=== PATIENT | female | born 1990 | race Caucasian/White ===

== ENCOUNTER 2017-12-12 10:38 | Outpatient (CLI) | payer MEDICAID ==
[2017-12-12] MEDS: ACETAMINOPHEN 325 MG TAB PO (12:22)
== END 2017-12-12 13:20 | disposition home or self-care (01) ==
LOC: OBT 10:38 → L-D 10:38 → OBT 13:20
DX: O62.9 Abnormality of forces of labor, unspecified (principal); Z3A.36 36 weeks gestation of pregnancy
CPT/HCPCS: 76818

== ENCOUNTER 2018-01-03 12:41 | Inpatient (IN) | payer MEDICAID ==
[2018-01-03] MEDS: LACTATED RINGER'S 1,000 ML IV ×2 (13:31→21:30)
[2018-01-03] MEDS ORDERED: OXYTOCIN 30 UNITS/LR 500 ML IV (15:00)
[2018-01-03] MEDS ORDERED: BUTORPHANOL 1 MG INJ IV (15:00)
[2018-01-03] MEDS ORDERED: METHYLERGONOVINE 0.2 MG INJ IM (15:00)
[2018-01-03] MEDS ORDERED: CARBOPROST 250 MCG INJ IM (15:00)
[2018-01-03] MEDS ORDERED: MISOPROSTOL 200 MCG TAB PR (15:00)
[2018-01-03] MEDS ORDERED: LIDOCAINE 1% (MPF) 30 ML INJ INJ (15:00)
[2018-01-03 15:15] LABS: ADD MAN DIFF? NO
[2018-01-03 15:19] LABS: WHITE BLOOD COUNT 11.5 10^3/ul (4.8-10.8)
[2018-01-03 15:19] LABS: BASOPHILS % 0.3 % (0.0-2.0); EOSINOPHILS # 0.1 10^3/ul (0.0-0.5); HEMATOCRIT 37.6 % (37.0-47.0); HEMOGLOBIN 12.5 g/dl (12.0-16.0); LYMPHOCYTES # 1.2 10^3/ul (0.8-2.9); LYMPHOCYTES % 10.6 % (15.0-51.0); MEAN CORPUSCULAR HEMOGLOBIN 30.3 pg (29.0-33.0); MEAN CORPUSCULAR HGB CONC 33.2 g/dl (32.0-37.0); MEAN CORPUSCULAR VOLUME 91.3 fl (82.0-101.0); MEAN PLATELET VOLUME 12.1 fl (7.4-10.4); MONOCYTE # 0.7 10^3/ul (0.3-0.9); MONOCYTES % 6.2 % (0.0-11.0); NEUTROPHIL # 9.4 10^3/ul (1.6-7.5); NEUTROPHILS % 81.6 % (39.0-77.0); PLATELET COUNT 186 10^3/UL (140-415); RED BLOOD COUNT 4.12 10^6/ul (4.20-5.40); RED CELL DISTRIBUTION WIDTH 13.9 % (11.5-14.5)
[2018-01-03 15:39] LABS: INR 0.84; PROTIME 11.6 Sec (11.9-14.9); PT RATIO 0.9
[2018-01-03] MEDS: DINOPROSTONE 10 MG VAG SUPP VAG (16:16)
[2018-01-03] MEDS ORDERED: AMPICILLIN 1 GM/NS (PMX) 50 ML IVPB (17:00)
[2018-01-03] MEDS ORDERED: AMPICILLIN 2 GM/NS (PMX) 100 ML IVPB (17:00)
[2018-01-03] MEDS: AMPICILLIN 2 GM/NS (PMX) 100 ML IVPB (17:13)
[2018-01-03] MEDS: LACTATED RINGER'S 1,000 ML IV* (17:13)
[2018-01-03] MEDS: AMPICILLIN 1 GM/NS (PMX) 50 ML IVPB (21:10)
[2018-01-03] MEDS: BUTORPHANOL 2 MG INJ IV (22:55)
[2018-01-04] MEDS: AMPICILLIN 1 GM/NS (PMX) 50 ML IVPB ×5 (01:01→16:38)
[2018-01-04] MEDS: LACTATED RINGER'S 1,000 ML IV* ×2 (02:47→07:00)
[2018-01-04] MEDS: BUTORPHANOL 2 MG INJ IV (04:48)
[2018-01-04] MEDS: LACTATED RINGER'S 1,000 ML IV ×3 (06:31→21:09)
[2018-01-04] MEDS ORDERED: FENTAnyl 2MCG/ML-ROPIV 0.2% 100 ML (08:14)
[2018-01-04] MEDS: DEXTROSE 5%-LR 1,000 ML IV (08:53)
[2018-01-04] MEDS: FENTAnyl 2MCG/ML-ROPIV 0.2% 100 ML BAG EPI ×2 (09:22→17:33)
[2018-01-04] MEDS ORDERED: NALOXONE (0.4 MG/ML) INJ IV (09:30)
[2018-01-04] MEDS: OXYTOCIN 30 UNITS/LR 500 ML IV (15:26)
[2018-01-04] MEDS: SOD CHLORIDE 0.9% 1,000 ML IV (18:00)
[2018-01-04] MEDS ORDERED: SOD CHLORIDE 0.9% 1,000 ML IV (18:30)
[2018-01-04 21:40] LABS: RAPID PLASMA REAGIN NONREACTIVE (NR)
[2018-01-04] MEDS ORDERED: MINERAL OIL LIGHT 10 ML VIAL TOP (22:00)
[2018-01-04] MEDS: MINERAL OIL LIGHT 10 ML VIAL TOP (23:40)
[2018-01-05] MEDS: OXYTOCIN 30 UNITS/LR 500 ML IV ×2 (00:16→01:16)
[2018-01-05 01:20] LABS: CBV Base Excess -8.1 mmol/L; CBV COHb 1.4 %; CBV Oxygen Sat 78.5 mmHG; Cord Blood Venous pO2 36.7 mmHG (15.0-45.0); Fraction OxyHgb Cord Venous 76.9 %; MODE ROOM AIR; MetHgb Cord Venous 0.7 %; Sample Type CBV; Site CORD
[2018-01-05 01:21] LABS: AADO2 Cord Arterial 54.7 mmHg; Arterial Cord Blood pCO2 62.4 mmHG (25-50); CBA Base Excess -13.3 mmol/L; CBA COHb 0.7 %; CBA Oxygen Sat 35.1 mmHG; CBA Total Hemglobin 17.6 g/dl; Cord Blood Arterial pO2 20.3 mmHG (15.0-45.0); Fraction OxyHgb Cord Arterial 34.4 %; MODE ROOM AIR; MetHgb Cord Arterial 1.4 %; Sample Type CBA; Site CORD
[2018-01-05] MEDS ORDERED: MISOPROSTOL 200 MCG TAB PR (04:00)
[2018-01-05] MEDS ORDERED: ZOLPIDEM 5 MG TAB PO (04:00)
[2018-01-05] MEDS ORDERED: DIBUCAINE 1% 30 GM OINT PR (04:00)
[2018-01-05] MEDS ORDERED: CARBOPROST 250 MCG INJ IM (04:00)
[2018-01-05] MEDS ORDERED: METHYLERGONOVINE 0.2 MG INJ IM (04:00)
[2018-01-05] MEDS ORDERED: LANOLIN 7 GM TUBE TOP (04:00)
[2018-01-05] MEDS ORDERED: OXYTOCIN 30 UNITS/LR 500 ML IV (04:00)
[2018-01-05] MEDS: IBUPROFEN 600 MG TAB PO ×3 (05:42→18:34)
[2018-01-05] MEDS: LACTATED RINGER'S 1,000 ML IV* (05:42)
[2018-01-05] MEDS: CEPHALEXIN 500 MG CAP PO ×3 (05:42→18:34)
[2018-01-05] MEDS: BENZOCAINE 20% 56 ML SPRAY TOP (05:43)
[2018-01-05] MEDS: WITCH HAZEL/GLYCERIN PAD PR (05:43)
[2018-01-05] MEDS: HYDROCODONE/APAP (5/325) TAB PO (06:29)
[2018-01-05] MEDS: MAGNESIUM HYDROXIDE 30ML CUP PO ×2 (08:53→20:27)
[2018-01-05] MEDS: SENNA/DOCUSATE NA (8.6MG/50MG) TAB PO ×2 (08:53→20:27)
[2018-01-05 13:48] LABS: ADD MAN DIFF? NO
[2018-01-05 13:53] LABS: WHITE BLOOD COUNT 18.1 10^3/ul (4.8-10.8)
[2018-01-05 13:53] LABS: BASOPHIL # 0.1 10^3/ul (0.0-0.1); BASOPHILS % 0.3 % (0.0-2.0); EOSINOPHILS # 0.1 10^3/ul (0.0-0.5); EOSINOPHILS % 0.4 % (0.0-7.0); HEMATOCRIT 33.8 % (37.0-47.0); HEMOGLOBIN 11.2 g/dl (12.0-16.0); LYMPHOCYTES # 1.5 10^3/ul (0.8-2.9); LYMPHOCYTES % 8.3 % (15.0-51.0); MEAN CORPUSCULAR HEMOGLOBIN 30.9 pg (29.0-33.0); MEAN CORPUSCULAR HGB CONC 33.1 g/dl (32.0-37.0); MEAN CORPUSCULAR VOLUME 93.4 fl (82.0-101.0); MEAN PLATELET VOLUME 11.5 fl (7.4-10.4); MONOCYTE # 1.2 10^3/ul (0.3-0.9); MONOCYTES % 6.4 % (0.0-11.0); NEUTROPHIL # 15.2 10^3/ul (1.6-7.5); NEUTROPHILS % 84.2 % (39.0-77.0); PLATELET COUNT 154 10^3/UL (140-415); RED BLOOD COUNT 3.62 10^6/ul (4.20-5.40); RED CELL DISTRIBUTION WIDTH 13.8 % (11.5-14.5)
[2018-01-06] MEDS: CEPHALEXIN 500 MG CAP PO ×4 (00:10→17:55)
[2018-01-06] MEDS: HYDROCODONE/APAP (5/325) TAB PO ×2 (00:10→06:03)
[2018-01-06] MEDS: IBUPROFEN 600 MG TAB PO ×4 (06:00→17:55)
[2018-01-06 08:36] LABS: ADD MAN DIFF? NO
[2018-01-06 08:40] LABS: BASOPHILS % 0.3 % (0.0-2.0); EOSINOPHILS # 0.3 10^3/ul (0.0-0.5); EOSINOPHILS % 2.3 % (0.0-7.0); HEMATOCRIT 31.5 % (37.0-47.0); HEMOGLOBIN 10.5 g/dl (12.0-16.0); LYMPHOCYTES # 1.7 10^3/ul (0.8-2.9); LYMPHOCYTES % 13.4 % (15.0-51.0); MEAN CORPUSCULAR HEMOGLOBIN 31.3 pg (29.0-33.0); MEAN CORPUSCULAR HGB CONC 33.3 g/dl (32.0-37.0); MEAN PLATELET VOLUME 11.6 fl (7.4-10.4); MONOCYTE # 0.7 10^3/ul (0.3-0.9); MONOCYTES % 5.6 % (0.0-11.0); NEUTROPHIL # 9.7 10^3/ul (1.6-7.5); NEUTROPHILS % 77.9 % (39.0-77.0); PLATELET COUNT 141 10^3/UL (140-415); RED BLOOD COUNT 3.35 10^6/ul (4.20-5.40); RED CELL DISTRIBUTION WIDTH 14.1 % (11.5-14.5)
[2018-01-06 08:40] LABS: WHITE BLOOD COUNT 12.4 10^3/ul (4.8-10.8)
[2018-01-06] MEDS: SENNA/DOCUSATE NA (8.6MG/50MG) TAB PO ×2 (08:43→21:00)
[2018-01-06] MEDS: MAGNESIUM HYDROXIDE 30ML CUP PO ×2 (08:43→21:00)
[2018-01-06 15:48] LABS: ADD MAN DIFF? NO
[2018-01-06 15:52] LABS: WHITE BLOOD COUNT 12.5 10^3/ul (4.8-10.8)
[2018-01-06 15:52] LABS: BASOPHILS % 0.3 % (0.0-2.0); EOSINOPHILS # 0.3 10^3/ul (0.0-0.5); EOSINOPHILS % 2.6 % (0.0-7.0); HEMOGLOBIN 11.5 g/dl (12.0-16.0); LYMPHOCYTES # 1.5 10^3/ul (0.8-2.9); LYMPHOCYTES % 12.1 % (15.0-51.0); MEAN CORPUSCULAR HEMOGLOBIN 30.9 pg (29.0-33.0); MEAN CORPUSCULAR HGB CONC 32.9 g/dl (32.0-37.0); MEAN CORPUSCULAR VOLUME 94.1 fl (82.0-101.0); MONOCYTE # 0.7 10^3/ul (0.3-0.9); MONOCYTES % 5.5 % (0.0-11.0); NEUTROPHIL # 9.9 10^3/ul (1.6-7.5); PLATELET COUNT 163 10^3/UL (140-415); RED BLOOD COUNT 3.72 10^6/ul (4.20-5.40); RED CELL DISTRIBUTION WIDTH 13.9 % (11.5-14.5)
[2018-01-07] MEDS: IBUPROFEN 600 MG TAB PO ×3 (00:26→13:07)
[2018-01-07] MEDS: CEPHALEXIN 500 MG CAP PO ×3 (00:28→13:07)
[2018-01-07] MEDS: SENNA/DOCUSATE NA (8.6MG/50MG) TAB PO (09:00)
[2018-01-07] MEDS: MAGNESIUM HYDROXIDE 30ML CUP PO (09:00)
[2018-01-07] MEDS: DIPHTH/TET/ACEL PERTUSS (ADULT) 0.5 ML VIAL IM* (09:02)
[2018-01-07] MEDS: MEASLES,MUMPS,RUBELLA VACCINE INJ SC* (09:03)
[2018-01-07] MEDS: VARICELLA VACCINE LIVE/PF 1,350 UNIT/0.5 ML ML SC* (09:03)
== END 2018-01-07 16:45 | disposition home or self-care (01) | DRG 775 ==
LOC: OBT 12:41 → PP1 01-05 03:40 → L-D 12:41 → OBT 15:00 → L-D 15:00
PROVIDERS: Obstetrics & Gynecology
PROC: 10D07Z6 Extraction of Products of Conception, Vacuum, Via Natural or Artificial Opening (ICD-10-PCS; principal; 2018-01-05)
PROC: 0W8NXZZ Division of Female Perineum, External Approach (ICD-10-PCS; 2018-01-05)
DX: O76 Abnormality in fetal heart rate and rhythm complicating labor and delivery (principal); O66.5 Attempted application of vacuum extractor and forceps; Z3A.39 39 weeks gestation of pregnancy; Z37.0 Single live birth
CPT/HCPCS: 36415; 36600; 62319; 76815; 76818; 82803; 85025; 85610; 85730; 86592; 86850; 86900; 86901; 88307; 99464